=== PATIENT | female | born 1975 | race Asian ===

== ENCOUNTER 2020-11-01 11:11 | Emergency (ER) | payer OTHER ==
--- NOTE | 2020-11-01 11:42 | ED Physician Documentation ---
PD HPI ABD PAIN - Stated complaint Stated Complaint: FEMALE - Chief complaint Chief Complaint: Abd Pain - History obtained from History obtained from: Patient - Additional information Additional information: 45-year-old woman developed light vaginal bleeding last night, much heavier and more profuse than a menses today. Had a normal menses about 10 days ago. She does have a history of fibroid uterus [place]. She doubts possibility of . She does have pelvic pain. Review of Systems Ten Systems: 10 systems reviewed and negative Constitutional: denies: Fever, Chills Cardiac: reports: Reviewed and negative Respiratory: reports: Reviewed and negative PD PAST MEDICAL HISTORY - Present Medications Home Medications: Ambulatory Orders Medication Instructions Recorded Confirmed Levothyroxine Sodium 137 mcg PO DAILY 11/01/20 11/01/20 [Levothyroxine] Norgestimate-Ethinyl Estradiol 1 each PO DAILY #1 packet 11/01/20 [Ortho Tri-Cyclen 28 Tablet] - Allergies Allergies/Adverse Reactions: Allergies Allergy/AdvReac Type Severity Reaction Status Date / Time Iodinated Contrast Media Allergy Emesis Verified 11/01/20 11:21 PD ED PE NORMAL - Vitals Vital signs reviewed: Yes - General General: Alert and oriented X 3, No acute distress - Abdomen Abdomen: Soft, Non tender - Derm Derm: No rash - Neuro Neuro: Alert and oriented X 3, Normal speech Results - Vitals Vitals: Vital Signs - 24 hr 11/01/20 11/01/20 11:18 13:16 Temperature 36.4 C L 37.3 C Heart Rate 85 75 Respiratory 16 20 Rate Blood Pressure 130/83 H 124/68 O2 Saturation 96 97 Oxygen O2 Source Room air - Labs Labs: Laboratory Tests 11/01/20 11/01/20 11/01/20 11:31 11:47 11:47 WBC 7.4 RBC 4.44 Hgb 13.7 Hct 40.0 MCV 90.1 MCH 30.9 MCHC 34.3 RDW 12.5 Plt Count 294 MPV 9.4 Neut # (Auto) 5.6 Lymph # (Auto) 1.2 L [place] # (Auto) 0.4 Eos # (Auto) 0.2 Baso # (Auto) 0.0 Absolute Nucleated RBC 0.00 Nucleated RBC % 0.0 Sodium 135 Potassium 3.7 Chloride 103 Carbon Dioxide 22 Anion Gap 10.0 BUN 11 Creatinine 0.5 Estimated GFR (MDRD) 133 Glucose 99 Calcium 9.3 Urine HCG, Qual NEGATIVE PD MEDICAL DECISION MAKING - ED course ED course: 45-year-old woman with history of fibroid uterus presents with midcycle heavy bleeding. Her hemodynamics and H&H are reassuring. Ultrasound shows an enlarged fibroid uterus and she was given a copy of the ultrasound on CD to aid in follow-up. We will start oral contraceptives in the meantime to stanch the bleeding. Departure - Departure Disposition: Home, Self Care Clinical Impression: Fibroid, Vaginal bleeding Condition: Good Record reviewed to determine appropriate education?: Yes Instructions: ED Fibroids Prescriptions: Norgestimate-Ethinyl Estradiol [Ortho Tri-Cyclen 28 Tablet] 1 each PO DAILY #1 packet Comments: The source of your bleeding today seems to be recurrence of fibroids. Call the [facility] to make an appointment in the morning women's clinic to discuss long- term management. Return if worsening. In the meantime the control pills should help with the bleeding. Discharge Date/Time: 11/01/20 13:37
[2020-11-01 11:50] LABS: HCG UR QUAL NEGATIVE
[2020-11-01 11:54] LABS: BASOPHILS % (AUTO) 0.4 %; EOSINOPHILS # (AUTO) 0.2 10^3/uL (0.0-0.7); HGB - HEMOGLOBIN 13.7 g/dL (12.0-16.0); LYMPHOCYTES # (AUTO) 1.2 10^3/uL (1.5-3.5); LYMPHOCYTES % (AUTO) 15.6 %; MEAN CORPUSCULAR HEMOGLOBIN 30.9 pg (27.0-31.0); MEAN CORPUSCULAR HGB CONC 34.3 g/dL (32.0-36.0); MEAN CORPUSCULAR VOLUME 90.1 fL (81.0-99.0); MEAN PLATELET VOLUME 9.4 fL (7.9-10.8); MONOCYTES # (AUTO) 0.4 10^3/uL (0.0-1.0); MONOCYTES % (AUTO) 5.5 %; NEUTROPHILS # (AUTO) 5.6 10^3/uL (1.5-6.6); NEUTROPHILS % (AUTO) 75.4 %; PLT - PLATELET COUNT 294 10^3/uL (130-450); RED BLOOD COUNT 4.44 10^6/uL (4.20-5.40); RED CELL DISTRIBUTION WIDTH 12.5 % (12.0-15.0); WHITE BLOOD COUNT 7.4 x10^3/uL (4.8-10.8)
[2020-11-01 12:03] LABS: CALCIUM 9.3 mg/dL (8.5-10.3); CREATININE 0.5 mg/dL (0.4-1.0); POTASSIUM 3.7 mmol/L (3.5-5.0)
[2020-11-01 13:16] VITALS: BP 124/68
--- NOTE | 2020-11-01 13:39 | Ultrasound Report ---
PROCEDURE: Pelvic w/Transvag+Doppler Comp INDICATIONS: bleeding, hx fibroids TECHNIQUE: Real-time scanning was performed of the pelvic organs, with image documentation. Additional endovagi nal scanning was necessary due to incomplete visualization of the adnexal and endometrial structures by transabdominal scanning. COMPARISON: None available.. FINDINGS: No pathologic free abdominal or pelvic fluid. Uterus: Uterus is anteverted and normal in size at 14 x 9 x 7.2 cm, volume of 171 cc. Heterogeneous myometrium. Several uterine fibroids. For example: -Mid intramural/submucosal 7.4 x 6.6 x 5.1 cm. -Mid anterior subserosal 4.5 x 4.5 x 2 cm. -Lower uterine segment anterior intramural/submucosal 2.4 x 1.9 x 1.8 cm. The endometrium measures 5 mm in combined thickness. Small nabothian cysts. Ovaries: Somewhat limited visibility. Ovaries appear within normal limits. Blood flow is seen in bot h ovaries. Right ovary measures 4.1 x 2.5 x 2 cm, volume of 11 cc. Left ovary measures 3.4 x 1.8 x 1.6 cm, volume of 5 cc. IMPRESSION: 1. Enlarged fibroid uterus. Uterus measures up to 14 cm in length. Large fibroid measuring 7.4 cm. 2. Endometrium measures 5 mm. 2. Ovaries appear within normal limits. Reviewed by: Víctor Lindo MD on 11/01/2020 12:37 PM [facility] Approved by: Víctor Lindo MD on 11/01/2020 12:37 PM BRI[facility] Station ID: [id number]
== END 2020-11-01 13:37 | disposition home or self-care (01) ==
LOC: ED 11:11
DX: D25.1 Intramural leiomyoma of uterus (principal); D25.0 Submucous leiomyoma of uterus; D25.2 Subserosal leiomyoma of uterus; N93.9 Abnormal uterine and vaginal bleeding, unspecified
CPT/HCPCS: 36415; 80048; 81025; 85025; 93975; 99283; 99284